=== PATIENT | female | born 1935 | race Caucasian/White ===

== ENCOUNTER 2023-06-01 19:06 | Emergency (ER) | payer MEDICARE ==
[2023-06-01] MEDS ORDERED: Bacitracin 1 PK ONE (19:59)
[2023-06-01] MEDS ORDERED: Boostrix 0.5 ML (Tdap) VIAL (>/=7 yrs of age) ONE (20:04)
== END 2023-06-01 20:40 | disposition home or self-care (01) ==
LOC: MADERS 19:06
DX: T24.212A Burn of second degree of left thigh, initial encounter (principal); T24.211A Burn of second degree of right thigh, initial encounter; E03.9 Hypothyroidism, unspecified
CPT/HCPCS: 16000; 90471; 90715

== ENCOUNTER 2024-05-20 16:37 | Emergency (ER) | payer MEDICARE, OTHER ==
[~2024-05-20 16:37] MED LIST: Iopamidol 370 76% 100 ML VIAL ONE
[2024-05-20 17:45] LABS: Band 3 % (5-11); Hematocrit 35.3 % (36.0-47.0); Hypochromia SLIGHT = 6-15 cells (100X) (0-5/hpf); Lymphocytes 16 % (21-51); MDiff Complete? YES; Mean Corpuscular Volume 88.4 fl (78.0-98.0); Mean Platelet Volume 8.4 fL (7.4-10.4); Monocytes 9 % (0-10); Neutrophil 61 % (42-75); Platelet Adequacy Comment Appears Decreased; Platelet Count 123 10x3/uL (130-400); Red Blood Cell (RBC) Count 3.99 mill/uL (4.20-5.40); White Blood Cell (WBC) Count 5.2 10x3/uL (4.8-10.8)
[2024-05-20 17:49] LABS: ALT (SGPT) 9 U/L (8-55); AST (SGOT) 16 U/L (5-34); Albumin 3.2 g/dL (3.4-4.8); Alkaline Phosphatase 67 U/L (40-110); Anion Gap 11 mmol/L (10-20); BUN (Urea Nitrogen) 8 mg/dL (9.8-20.1); Calc. Creatinine Clearance 0 mL/min (70-130); Calcium 7.8 mg/dL (7.8-10.44); Carbon Dioxide 17 mmol/L (23-31); Chloride 92 mmol/L (98-107); Estimated GFR 84; Globulin 2.2 g/dL (2.4-3.5); Glucose 98 mg/dL (83-110); Lipase 8 U/L (8-78); Magnesium 1.2 mg/dL (1.6-2.6); Protein, Total 5.4 g/dL (5.8-8.1)
[2024-05-20 18:04] LABS: Critical Call Chemistry NUR.AW2@1804; Sodium 116 mmol/L (136-145)
[2024-05-20] MEDS ORDERED: Magnesium 2 GM/50 ML BAG (IN WATER) ONE (19:04)
[2024-05-20] MEDS ORDERED: Sodium Chloride 0.9% 1,000 ML ONE ×3 (19:04→22:31)
[2024-05-20 21:17] LABS: Bacteria/HPF Rare-Few HPF (None Seen); Bilirubin Negative (Negative); Blood, Urine Negative (Negative); CAUTI Indications for Culture Dysuria,urgency,freq; Clarity Clear (Clear); Glucose, Urine (Dipstick) Negative (Negative); Ketone, Urine 40 mg/dL (Negative); Leukocyte Negative (Negative); Nitrite Negative (Negative); Protein, Urine (Dipstick) Negative (Neg-Trace); RBC/HPF 0-3 HPF (0-3); Specific Gravity, Urine 1.015 (1.005-1.030); Squamous Epithelial 0-3 HPF (0-3); WBC/HPF 0-3 HPF (0-3)
[2024-05-20 21:18] LABS: Urine Culture Reflex No No
[2024-05-20] MEDS ORDERED: Ondansetron PF 4 MG/2 ML Vial ONE (21:46)
[2024-05-20 22:50] LABS: Anion Gap 12 mmol/L (10-20); BUN (Urea Nitrogen) 7 mg/dL (9.8-20.1); Calc. Creatinine Clearance 0 mL/min (70-130); Calcium 7.6 mg/dL (7.8-10.44); Carbon Dioxide 16 mmol/L (23-31); Chloride 92 mmol/L (98-107); Estimated GFR 86; Glucose 89 mg/dL (83-110); Potassium 3.8 mmol/L (3.5-5.1)
[2024-05-20 22:53] LABS: Critical Call Chemistry NUR.AID@2251; Sodium 116 mmol/L (136-145)
== END 2024-05-20 22:51 | disposition short-term general hospital (02) ==
LOC: MADERS 16:37
DX: E87.1 Hypo-osmolality and hyponatremia (principal); E83.42 Hypomagnesemia; R19.7 Diarrhea, unspecified; E03.9 Hypothyroidism, unspecified; Z79.890 Hormone replacement therapy
CPT/HCPCS: 36415; 51701; 74177; 80053; 81001; 83690; 83735; 85025; 93005; 96365; 96375; J2405; J3475; J7030; Q9967

== ENCOUNTER 2024-06-18 13:53 | Emergency (ER) | payer MEDICARE, OTHER ==
[2024-06-18] MEDS ORDERED: Clindamycin 150 MG CAP ONE (14:17)
== END 2024-06-18 14:40 | disposition home or self-care (01) ==
LOC: MADERS 13:53
DX: H04.321 Acute dacryocystitis of right lacrimal passage (principal)
CPT/HCPCS: 99283

== ENCOUNTER 2025-02-22 15:25 | Emergency (ER) | payer MEDICARE, OTHER ==
[2025-02-22] MEDS ORDERED: Ondansetron PF 4 MG/2 ML Vial ONE (15:48)
[2025-02-22 16:25] LABS: #Basophils 0.1 thou/uL (0.0-0.2); #Eosinophils 0.1 thou/uL (0.0-0.7); #Lymphocytes 3.2 thou/uL (1.20-3.40); #Monocytes 0.6 thou/uL (0.11-0.59); #Neutrophils 2.7 thou/uL (1.40-6.50); %Basophils 1.7 % (0.0-1.0); %Eosinophils 1.3 % (0.0-10.0); %Lymphocytes 47.6 % (21.0-51.0); %Monocytes 9.3 % (0.0-10.0); %Neutrophils 40.2 % (42.0-75.0); Hematocrit 40.0 % (36.0-47.0); Hemoglobin 13.8 g/dL (12.0-16.0); Mean Corpuscular Hemoglobin 29.3 pg (27.0-31.0); Mean Corpuscular Volume 85.1 fl (78.0-98.0); Platelet Count 224 10x3/uL (130-400); Red Blood Cell (RBC) Count 4.70 mill/uL (4.20-5.40); White Blood Cell (WBC) Count 6.8 10x3/uL (4.8-10.8)
[2025-02-22 16:37] LABS: ALT (SGPT) 11 U/L (Less than 34); AST (SGOT) 24 U/L (11-34); Albumin 3.8 g/dL (3.1-4.5); Alkaline Phosphatase 71 U/L (40-110); Anion Gap 18 mmol/L (10-20); BUN (Urea Nitrogen) 11 mg/dL (9.8-20.1); Bilirubin, Total 1.5 mg/dL (0.3-1.2); Calc. Creatinine Clearance 0 mL/min (70-130); Calcium 8.7 mg/dL (7.8-10.44); Carbon Dioxide 14 mmol/L (23-31); Chloride 88 mmol/L (98-107); Globulin 2.7 g/dL (2.4-3.5); Glucose 124 mg/dL (83-110); Lipase 11 U/L (8-78); Magnesium 1.5 mg/dL (1.6-2.6); Potassium 3.7 mmol/L (3.5-5.1)
[2025-02-22 16:48] LABS: Sodium 116 mmol/L (136-145)
[2025-02-22 17:10] LABS: Troponin I Less than 0.010 ng/mL (< 0.028)
[2025-02-22 17:54] LABS: CO2 Tension (PvCO2) 24.1 mmHg (42.0-51.0)
[2025-02-22 17:55] LABS: Bicarbonate (HCO3v) 18.3 mmol/L (22.0-28.0); vO2 Saturation-calc 99.9 % (60.0-85.0)
[2025-02-22 17:56] LABS: Hemoglobin - Calc 14.2 g/dL (12.0-16.0)
[2025-02-22 17:57] LABS: Calcium, Ionized 1.04 mmol/L (1.15-1.33); Chloride 86 mmol/L (98-107); Potassium 3.5 mmol/L (3.5-5.1); Sodium 112 mmol/L (138-145); T. Carbon Dioxide 19.1 mmol/L (22.0-28.0)
[2025-02-22 18:46] LABS: Bicarbonate (HCO3v) 21.6 mmol/L (22.0-28.0); CO2 Tension (PvCO2) 30.9 mmHg (42.0-51.0); Calcium, Ionized 1.00 mmol/L (1.15-1.33); Chloride 87 mmol/L (98-107); Hemoglobin - Calc 11.4 g/dL (12.0-16.0); Potassium 3.4 mmol/L (3.5-5.1); T. Carbon Dioxide 22.6 mmol/L (22.0-28.0); vO2 Saturation-calc 93.9 % (60.0-85.0)
[2025-02-22 18:48] LABS: Glucose, Urine (Dipstick) Negative (Negative); Leukocyte Negative (Negative); Protein, Urine (Dipstick) Negative (Neg-Trace); Specific Gravity, Urine 1.015 (1.005-1.030)
[2025-02-22 18:53] LABS: Sodium 113 mmol/L (138-145)
[2025-02-22 18:58] LABS: Bacteria/HPF Rare-Few HPF (None Seen); CAUTI Indications for Culture Acute Hematuria; RBC/HPF 0-3 HPF (0-3); Urine Culture Reflex No No
== END 2025-02-22 19:59 | disposition short-term general hospital (02) ==
LOC: MADERS 15:25
DX: E87.1 Hypo-osmolality and hyponatremia (principal); E03.9 Hypothyroidism, unspecified; J44.9 Chronic obstructive pulmonary disease, unspecified; K21.9 Gastro-esophageal reflux disease without esophagitis
CPT/HCPCS: 70450; 71045; 74177; 80053; 81001; 82330; 82435; 82803; 83690; 83735; 83880; 84132; 84295; 84443; 84484; 85014; 85025; 93005; 96374; J7030; Q9967